=== PATIENT | female | born 1955 | race Caucasian/White ===

== ENCOUNTER 2021-04-05 18:58 | Emergency (ER) | payer MEDICARE ==
[~2021-04-05] VITALS: Ht 160 cm; Wt 61.4 kg
[2021-04-05] MEDS ORDERED: IV NORMAL SALINE 1000ML BAG 1,000 ML IV ONE (19:15)
[2021-04-05 20:31] LABS: BASO # 0.1 x10^3/uL (0.0-0.2); BASO % 1 % (0-3); EOS % 0 % (0-3); HEMATOCRIT 42.6 % (36.0-47.0); HEMOGLOBIN 14.1 g/dL (12.0-15.5); LYMPH # 2.9 x10^3/uL (1.0-4.8); LYMPH % 25 % (24-48); MEAN CORPUSCULAR HEMOGLOBIN 29 pg (25-35); MEAN CORPUSCULAR HGB CONC 33 g/dL (31-37); MEAN CORPUSCULAR VOLUME 86 fL (79-100); MONO # 0.8 x10^3/uL (0.0-1.1); MONO % 7 % (0-9); NEUT % 68 % (31-73); PLATELET COUNT 331 x10^3/uL (140-400); RED BLOOD COUNT 4.96 x10^6/uL (3.50-5.40); RED CELL DISTRIBUTION WIDTH 14.1 % (11.5-14.5); WHITE BLOOD COUNT 11.8 x10^3/uL (4.0-11.0)
--- NOTE | 2021-04-05 20:48 | PHYS DOC ---
General Adult EDM: Chief Complaint: GENERALIZED BODY ACHES HPI: HPI: Patient is a 65 year old female who presents the ED today complaining of ongoing generalized body aches, symptoms began 2 weeks ago after being diagnosed with COVID19. Patient states she has followed up with her PCP twice last week and was started on ivermectin and hydroxychloroquine. Denies any nausea, vomiting, reports poor appetite. Denies any diarrhea or abdominal pain. Denies any headache, chest pain or shortness of breath. Review of Systems: Review of Systems: Constitutional: Reports body aches and poor appetite. Denies fever or chills. [] Eyes: Denies change in visual acuity. [] HENT: Denies nasal congestion or sore throat. [] Respiratory: Denies cough or shortness of breath. [] Cardiovascular: Denies chest pain or edema. [] GI: Denies abdominal pain, nausea, vomiting, bloody stools or diarrhea. [] : Denies dysuria. [] Musculoskeletal: Denies back pain or joint pain. [] Integument: Denies rash. [] Neurologic: Denies headache, focal weakness or sensory changes. [] Psychiatric: Denies depression or anxiety. [] Heart Score: C/O Chest Pain: N/A Risk Factors: Risk Factors: DM, Current or recent (<one month) smoker, HTN, HLP, family history of CAD, obesity. Risk Scores: Score 0 - 3: 2.5% MACE over next 6 weeks - Discharge Home Score 4 - 6: 20.3% MACE over next 6 weeks - Admit for Clinical Observation Score 7 - 10: 72.7% MACE over next 6 weeks - Early Invasive Strategies Current Medications: Current Medications Medications (Trade) Dose Ordered Sig/Armand Start Time Stop Time Status Last Admin Dose Admin Sodium Chloride 1,000 ml @ 1,000 mls/hr 1X ONCE 04/05/21 19:15 04/05/21 20:14 UNV 04/05/21 19:15 1,000 MLS/HR Physical Exam: PE: Constitutional: Well developed, well nourished, no acute distress, non-toxic appearance. [] HENT: Normocephalic, atraumatic, bilateral external ears normal, oropharynx moist, no oral exudates, nose normal. [] Eyes: PERRLA, EOMI, conjunctiva normal, no discharge. [] Neck: Normal range of motion, no tenderness, supple, no stridor. [] Cardiovascular:Heart rate regular rhythm, no murmur [] Lungs & Thorax: Bilateral breath sounds clear to auscultation [] Abdomen: Bowel sounds normal, soft, no tenderness, no masses, no pulsatile masses. [] Skin: Warm, dry, no erythema, no rash. [] Back: No tenderness, no CVA tenderness. [] Extremities: No tenderness, no cyanosis, no clubbing, ROM intact, no edema. [] Neurologic: Alert and oriented X 3, normal motor function, normal sensory function, no focal deficits noted. [] Psychologic: Affect normal, judgement normal, mood normal. [] Current Patient Data: Labs: Laboratory Tests Test 04/05/21 20:25 White Blood Count 11.8 x10^3/uL (4.0-11.0) H Red Blood Count 4.96 x10^6/uL (3.50-5.40) Hemoglobin 14.1 g/dL (12.0-15.5) Hematocrit 42.6 % (36.0-47.0) Mean Corpuscular Volume 86 fL (79-100) Mean Corpuscular Hemoglobin 29 pg (25-35) Mean Corpuscular Hemoglobin Concent 33 g/dL (31-37) Red Cell Distribution Width 14.1 % (11.5-14.5) Platelet Count 331 x10^3/uL (140-400) Neutrophils (%) (Auto) 68 % (31-73) Lymphocytes (%) (Auto) 25 % (24-48) Monocytes (%) (Auto) 7 % (0-9) Eosinophils (%) (Auto) 0 % (0-3) Basophils (%) (Auto) 1 % (0-3) Neutrophils # (Auto) 8.0 x10^3/uL (1.8-7.7) H Lymphocytes # (Auto) 2.9 x10^3/uL (1.0-4.8) Monocytes # (Auto) 0.8 x10^3/uL (0.0-1.1) Eosinophils # (Auto) 0.0 x10^3/uL (0.0-0.7) Basophils # (Auto) 0.1 x10^3/uL (0.0-0.2) Laboratory Tests 04/05/21 20:25 EKG: EKG: [] Radiology/Procedures: Radiology/Procedures: []PROCEDURE: CHEST AP ONLY EXAM: XR CHEST 1V 04/05/2021 7:24 PM CLINICAL INDICATION: Covid positive, not feeling well COMPARISON: Chest radiograph 04/14/2018 TECHNIQUE: AP upright view of the chest FINDINGS: The heart is normal in size. Lungs are adequately expanded. No consolidation, pleural effusion, or pneumothorax. Small hiatal hernia. No acute osseous abnormality. IMPRESSION: No acute cardiopulmonary abnormality. Electronically signed by: Nancy Elliott MD (04/05/2021 9:34 PM) [id number] DICTATED and SIGNED BY: NANCY ELLIOTT MD DATE: 04/05/[id number] 0 Course & Med Decision Making: Course & Med Decision Making Pertinent Labs and Imaging studies reviewed. (See chart for details) This a 65-year-old female patient currently positive for COVID-19 diagnosed 2 weeks ago presenting to the ED today complaining of ongoing body aches, poor appetite. Was seen by the PCP twice last week, currently on ivermectin and hydroxychloroquine. Vitals on arrival to the ED temperature 98.9, heart rate 88, respirations 16, blood pressure 157/88, O2 sats 100% on room air. Chest x-ray interpreted by radiologist as negative for any acute findings. CBC with a WBC of 11.8 and a slight left shift, CMP with potassium of 3.0, patient was given oral potassium replacement, AST 90, ALT 75, patient has no abdominal pain. No nausea, no vomiting. D/c to home. Instructed to continue pushing fluids, follow-up with PCP in the next 7 days. Dragon Disclaimer: Dragon Disclaimer: This electronic medical record was generated, in whole or in part, using a voice recognition dictation system. Departure Departure Impression: Primary Impression: Body aches Additional Impression: SARS-CoV-2 positive Disposition: 01 HOME / SELF CARE / HOMELESS Condition: STABLE Referrals: DEJA WAGNER DO (PCP) follow up in the next seven days Patient Instructions: Viral Infections Additional Instructions: You were evaluated in the emergency room for body aches which is a very common symptom with COVID19. Please push fluids, rest, maintain good and hygiene, take Tylenol or Motrin for your pain. Follow-up with your doctor in the course of this week or next week ALETHA HERNANDEZ APRN Apr 05, 2021 20:48
[2021-04-05 20:50] LABS: CALCIUM 8.6 mg/dL (8.5-10.1); GFR 55.6
[2021-04-05 20:55] LABS: ALBUMIN 3.5 g/dL (3.4-5.0); ALBUMIN/GLOBULIN RATIO 0.8 (1.0-1.7); TOTAL BILIRUBIN 0.7 mg/dL (0.2-1.0); TOTAL PROTEIN 7.7 g/dL (6.4-8.2)
--- NOTE | 2021-04-05 21:36 | RAD ---
EXAM: XR CHEST 1V 04/05/2021 7:24 PM CLINICAL INDICATION: Covid positive, not feeling well COMPARISON: Chest radiograph 04/14/2018 TECHNIQUE: AP upright view of the chest FINDINGS: The heart is normal in size. Lungs are adequately expanded. No consolidation, pleural effu arabella, or pneumothorax. Small hiatal hernia. No acute osseous abnormality. IMPRESSION: No acute cardiopulmonary abnormality. Electronically signed by: Nancy Elliott MD (04/05/2021 9:34 PM) [id number]
[2021-04-05 23:00] VITALS: BP 141/95
[2021-04-05] MEDS ORDERED: POTASSIUM CHLORIDE 20 MEQ TABLET.ER. PO ONE (23:00)
== END 2021-04-05 23:07 | disposition home or self-care (01) ==
LOC: ER 18:58
DX: U07.1 COVID-19 (principal)
CPT/HCPCS: 36415; 71045; 80053; 85025; 96360; 96361; 99285; J7030